=== PATIENT | male | born 1995 | race Caucasian/White ===

== ENCOUNTER 2017-06-01 23:53 | Emergency (ER) | payer OTHER ==
[2017-06-02 00:02] VITALS: RESP 16; TEMP 98.1
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
[2017-06-02 01:40] VITALS: BP 130/71; PULSE 65; O2SAT 96
== END 2017-06-02 01:41 | disposition home or self-care (01) ==
PROC: 0HQ1XZZ Repair Face Skin, External Approach (ICD-10-PCS; principal; 2017-06-01)
DX: S01.81XA Laceration without foreign body of other part of head, initial encounter (principal); F17.200 Nicotine dependence, unspecified, uncomplicated; V91.33XA Hit or struck by falling object due to accident to other powered watercraft, initial encounter; Y92.828 Other wilderness area as the place of occurrence of the external cause; Y93.11 Activity, swimming